=== PATIENT | male | born 2000 | race Caucasian/White ===

== ENCOUNTER 2018-12-14 08:41 | Emergency (ER) | payer BC ==
--- NOTE | 2018-12-14 09:57 | ER Report ---
History and Physical Time Seen By MD: 09:40 Hx. of Stated Complaint: INTERMITTENT SOB. 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 They recently traveled from [place] to here in [place]. He states that he has had intermittent rapid breathing that he thinks feels like asthma. This comes and goes and happens a couple times a day. It is been going on since Monday. When it happens he notices that his hands start to tingle and become flexed. He does not know what seems to cause this but is worried he has a student illness. Patient states he had something similar when he traveled to [place] a few years ago and had lightheadedness. However, he does not have lightheadedness in between symptoms. He has no symptoms right now. He has no chest pain or fevers. He has mild intermittent frontal headache, though no headache now. He has mild intermittent nausea though notes nausea now. He has no vomiting. He has no new weakness. He has no rashes or swelling. He has no history of asthma. He does not use tobacco. REVIEW OF SYSTEMS: Constitutional: No fever, no chills. Eyes: No discharge. ENT: No sore throat. Cardiovascular: No chest pain, no palpitations. Respiratory: above Gastrointestinal: No abdominal pain, no vomiting. Genitourinary: No hematuria. Musculoskeletal: No back pain. Skin: No rashes. Neurological: No headache. Remainder of the 14 system rev: Yes Allergies: Coded Allergies: No Known Drug Allergies (Unverified , 12/14/18) Home Meds No Active Prescriptions or Reported Meds Reviewed Nurses Notes: Yes Constitutional Vital Sign - Last 24 Hours 12/14/18 08:58 Temp 97.5 Pulse 78 Resp 20 B/P (MAP) 142/97 Pulse Ox 96 O2 Delivery Room Air Physical Exam General Appearance: The patient is alert, has no immediate need for airway protection and no signs of toxicity. [ ] Eyes: Pupils equal and round no pallor or injection. ENT, Mouth: Mucous membranes are moist. Respiratory: There are no retractions, lungs are clear to auscultation. Cardiovascular: Regular rate and rhythm. no m/r/g Gastrointestinal: Abdomen is soft and non tender, no masses, bowel sounds normal. Neurological: alert, oriented, nad Skin: Warm and dry, no rashes. Musculoskeletal: Extremities are nontender, nonswollen and have full range of motion. DIFFERENTIAL DIAGNOSIS: After history and physical exam differential diagnosis was considered for shortness of breath including but not limited to pulmonary infectious process, COPD, asthma, pulmonary embolus and congestive heart failure. Medical Decision Making ED Course/Re-evaluation ED Course 18 y/o m concerned about 'altitude illness', with intermittent difficutly breathing; history is c/w hyperventilation with carpal pedal spasm. Pt is asymptomatic here and has normal vital signs on sitting/standing without dyspnea on exertion. While I considered emergent causes such as PE (PERC neg), HAPE, pneumonia, or other causes, pt is very low likelihood for these after ED evaluation. I discussed at length strict return precautions, which he understands. Decision to Disposition Date: Dec 14, 2018 Decision to Disposition Time: 09:55 Depart Departure Latest Vital Signs Vital Signs Date Time Temp Pulse Resp B/P (MAP) Pulse Ox O2 Delivery O2 Flow Rate FiO2 12/14/18 08:58 97.5 78 20 142/97 96 Room Air Impression: Primary Impression: Dyspnea Condition: Improved Disposition: HOME OR SELF-CARE New Scripts No Active Prescriptions or Reported Meds Patient Instructions: Dyspnea (ED), Hyperventilation (ED) Additional Instructions: As we discussed, work to control your breathing if you are have another similar episode; you may try breathing into a paper bag to help. Please return imm ediately if you have persistent difficulty breathing, fever, concerning headaches, or any concerns. Problem Qualifiers Primary Impression: Dyspnea Dyspnea type: shortness of breath Qualified Codes: R06.02 - Shortness of breath RAHEEM DAVE MD Dec 14, 2018 09:57
[2018-12-14 10:06] VITALS: BP 131/89
== END 2018-12-14 10:07 | disposition home or self-care (01) ==
LOC: ER 10:01
DX: R06.02 Shortness of breath (principal)
CPT/HCPCS: 99281